=== PATIENT | female | born 1950 | race Caucasian/White ===

== ENCOUNTER 2019-02-04 14:53 | Emergency (ER) | payer BC ==
--- NOTE | 2019-02-04 15:05 | PDOC ---
Rapid Medical Evaluation Time Seen by Provider: 02/04/19 15:02 Medical Evaluation: Allergies Allergy/AdvReac Type Severity Reaction Status Date / Time No Known Allergies Allergy Verified 07/10/13 09:40 02/04/19 15:02 I have performed a brief in-person evaluation of this patient. The patient presents with a chief complaint of:slipped on ice today and reports R ankle pain. Able to bear weight w/ cane since but painful. No head injury. Denies shin, dizziness, n/v, LOC, neck, back or hip pain. No CP or dizziness prior to fall. H/o HTN, on baby asa, COPD Pertinent physical exam findings:Stable and well kevin, defer rest of exam to FT provider I have ordered the following:R ankle/foot xray The patient will proceed to the ED for further evaluation. Discharge Disposition - Diagnosis Ankle injury Qualifiers: Encounter type: initial encounter Laterality: right Qualified Code(s): S99.911A - Unspecified injury of right ankle, initial encounter - Referrals - Patient Instructions - Post Discharge Activity
[2019-02-04 15:07] VITALS: BP 131/81; PULSE 91; TEMP 98.5; BMI 41.5
--- NOTE | 2019-02-04 17:29 | PDOC ---
History of Present Illness - General Chief Complaint: Injury Stated Complaint: FALL Time Seen by Provider: 02/04/19 15:02 - History of Present Illness Initial Comments: 02/04/19 17:26 5-year-old female presents for evaluation of right ankle pain. She describes an inversion type injury while walking earlier today. She points to the lateral aspect of the right ankle as the area of her discomfort Past History - Past Medical History Allergies/Adverse Reactions: Allergies Allergy/AdvReac Type Severity Reaction Status Date / Time No Known Allergies Allergy Verified 02/04/19 15:03 CVA: No COPD: Yes CHF: No DVT: No HTN: Yes - Immunization History Immunization Up to Date: Yes - Psycho Social/Smoking Cessation Hx Smoking History: Never smoked Information on smoking cessation initiated: No Hx Alcohol Use: No Drug/Substance Use Hx: No Review of Systems - Review of Systems Musculoskeletal: Yes: Joint Pain *Physical Exam - Vital Signs Last Vital Signs Temp Pulse Resp BP Pulse Ox 98.5 F 91 H 18 131/81 99 02/04/19 15:03 02/04/19 15:03 02/04/19 15:03 02/04/19 15:03 02/04/19 15:03 - Physical Exam 02/04/19 17:26 Right ankle skin color and temperature normal range of motion is slightly limited. There is no tenderness about the proximal fibula or along its distal course. No tenderness about the medial lateral malleolus base of the fifth metatarsal or navicular. Mild tenderness over the ATFL without instability no gross sensorimotor deficits neurovascular intact. ED Treatment Course - RADIOLOGY Radiology Studies Ordered: Category Date Time Status ANKLE-RIGHT [RAD] Stat Radiology 02/04/19 16:49 Taken Medical Decision Making - Medical Decision Making 02/04/19 17:27 X-rays of the right ankle show osteopenia no gross fracture moderate degenerative changes. Right ankle sprain, weight-bear as tolerated with crutches and Aircast follow-up with Ortho Discharge - Discharge Information Problems reviewed: Yes Clinical Impression/Diagnosis: Ankle injury Qualifiers: Encounter type: initial encounter Laterality: right Qualified Code(s): S99.911A - Unspecified injury of right ankle, initial encounter Condition: Stable Disposition: HOME - Admission No - Follow up/Referral Referrals: Lalito Hull MD [Primary Care Provider] - Farooq,Tripp A, DO [Staff Physician] - - Patient Discharge Instructions Additional Instructions: You may weight-bear as tolerated with use of crutches in the Aircast Tylenol as directed for pain. Return to the emergency room for worsening symptoms. And without fail please follow-up with orthopedic surgery in 1 to 2 days for further evaluation and treatment options. - Post Discharge Activity
== END 2019-02-04 17:55 | disposition home or self-care (01) ==
LOC: JERFT 14:53
PROC: 2W3QX1Z Immobilization of Right Lower Leg using Splint (ICD-10-PCS; principal; 2019-02-04)
DX: S93.491A Sprain of other ligament of right ankle, initial encounter (principal); W00.2XXA Other fall from one level to another due to ice and snow, initial encounter; Y93.89 Activity, other specified; Y92.414 Local residential or business street as the place of occurrence of the external cause; Y99.8 Other external cause status; I10 Essential (primary) hypertension; J44.9 Chronic obstructive pulmonary disease, unspecified
CPT/HCPCS: 73610-TC-RT-FY; 99282-25

== ENCOUNTER 2019-10-25 09:48 | Emergency (ER) | payer BC ==
--- NOTE | 2019-10-25 10:26 | TELE ---
HPI Do you have fever,cough or shortness of breath?: No - General Reason For Visit: COVID TEST Time Seen by Provider: 10/25/19 10:23 History Source: Patient Exam Limitations: No Limitations - History of Present Illness 10/25/19 10:23 HPI: 68-year-old woman past medical history of hypertension who presents for telehealth visit requesting COVID testing. Patient states she was recently in the state [facility] and upon return was found that her needs a bone marrow biopsy for reevaluation of his lymphoma. Patient was informed by her 's oncologist that it would be unsafe to be near him after the biopsy until she has COVID testing which is negative. Patient denies any symptoms at present. Allergies: Denies CONSTITUTIONAL: Absent: fever, chills, diaphoresis, generalized weakness, malaise, loss of appetite HEENT: Absent: rhinorrhea, nasal congestion, throat pain, throat swelling, difficulty swallowing, mouth swelling, ear pain, eye pain, visual changes CARDIOVASCULAR: Absent: chest pain, loss of consciousness, palpitations, irregular heart rate, peripheral edema RESPIRATORY: Absent: cough, shortness of breath, dyspnea with exertion, orthopnea, wheezing, stridor, hemoptysis GASTROINTESTINAL: Absent: abdominal pain, abdominal distension, nausea, vomiting, diarrhea SKIN: Absent: rash, itching, pallor NEUROLOGIC: Absent: headache, focal weakness or paresthesias, dizziness, unsteady gait, seizure, mental status changes, bladder or bowel incontinence PSYCHIATRIC: Absent: anxiety, depression, suicidal or homicidal ideation, hallucinations. GENERAL: Well developed, well nourished. Awake and alert. No acute distress. HEENT: Normocephalic, atraumatic. PERRLA, EOMI. NECK: Supple. Full ROM. PULMONARY: No evidence of respiratory distress. EXTREMITIES: No cyanosis. SKIN: Warm and dry. Normal capillary refill. No rashes. No jaundice. NEUROLOGICAL: Alert, awake, appropriate. PSYCHIATRIC: Cooperative. Good eye contact. Appropriate mood and affect. Past History - Medical History Allergies/Adverse Reactions: Allergies Allergy/AdvReac Type Severity Reaction Status Date / Time No Known Allergies Allergy Verified 02/04/19 15:03 CVA: No COPD: Yes CHF: No DVT: No HTN: Yes - Immunization History Immunization Up to Date: Yes - Psycho-Social/Smoking History Smoking History: Never smoked - Medical Decision Making 10/25/19 10:24 A/P: 68-year-old woman with telehealth visit for COVID testing Patient is asymptomatic COVID testing COVID antibody testing Discharge Discharge Diagnosis at time of Disposition: Counseled about COVID-19 virus infection - Referrals Follow-up Referral(s): Lalito Hull MD [Primary Care Provider] - - Patient Instructions Additional Discharge Instructions: You were tested for COVID today. Please isolate yourself until your test results come back. Guidance has been provided in your discharge papers You should receive a call within 24 to 48 hours from our department with your results. Thank you for using our telehealth service today! - Discharge Disposition: HOME Condition at time of Disposition: Stable
== END 2019-10-25 10:26 | disposition home or self-care (01) ==
LOC: JVIRT 09:48
DX: Z11.59 Encounter for screening for other viral diseases (principal)
CPT/HCPCS: Q3014-GT; U0003

== ENCOUNTER 2021-09-26 04:14 | Day surgery (SDC) | payer OTHER ==
[2021-09-22 11:24] VITALS: BMI 39.6
[2021-09-26] MEDS ORDERED: ceFAZolin SODIUM 1 GM VIAL ONE (07:11)
[2021-09-26] MEDS ORDERED: METHYLENE BLUE 50 MG/10 ML AMPUL ONE (07:22)
[2021-09-26] MEDS ORDERED: BUPIVACAINE HCL/PF 0.5% (5MG/ML) 10 ML VIAL ONE (07:22)
[2021-09-26] MEDS ORDERED: INDOCYANINE GREEN 25 MG/10 ML VIAL IVPUSH ONE (07:22)
[2021-09-26] MEDS ORDERED: ISOSULFAN BLUE 50 MG/5 ML VIAL SQ ONE (07:23)
[2021-09-26] MEDS ORDERED: LIDOCAINE 1%/EPI 1:100000 (20 ML MULTI DOSE VIAL) ONE (07:23)
[2021-09-26] MEDS ORDERED: ACETAMINOPHEN 1000 MG/100 ML BAG IVPB ONE (08:00)
[2021-09-26] MEDS ORDERED: CEFAZOLIN 2 GM in DEXTROSE 5%-WATER - 100 ML IVPB ONE (08:00)
[2021-09-26] MEDS ORDERED: TRANEXAMIC ACID 1000 MG/10 ML VIAL IVPUSH ONE (08:00)
[2021-09-26] MEDS ORDERED: GABAPENTIN 300 MG CAPSULE PO ONE (08:00)
[2021-09-26] MEDS ORDERED: ONDANSETRON 4 MG/2 ML VIAL IVPUSH PRN (08:49)
[2021-09-26] MEDS ORDERED: PROMETHAZINE HCL 25 MG/1 ML VIAL IVPUSH PRN (08:49)
[2021-09-26] MEDS ORDERED: ROCURONIUM BROMIDE 50 MG/5 ML SYRINGE ONE ×2 (09:09→10:38)
[2021-09-26] MEDS ORDERED: PROPOFOL 40 ML ONE (09:10)
[2021-09-26] MEDS ORDERED: MIDAZOLAM HCL 2 MG/2 ML SINGLE DOSE VIAL ONE (09:10)
[2021-09-26] MEDS ORDERED: GLYCOPYRROLATE 0.2 MG/1 ML VIAL ONE ×2 (09:15→11:13)
[2021-09-26] MEDS ORDERED: LIDOCAINE HCL/PF 2% SDV 5ML VIAL ONE (09:15)
[2021-09-26] MEDS ORDERED: ceFAZolin SODIUM 1 GM VIAL IVPB ONE (09:42)
[2021-09-26] MEDS ORDERED: DEXAMETHASONE SOD PHOSPHATE 4 MG/1 ML VIAL ONE (09:47)
[2021-09-26] MEDS ORDERED: NEOSTIGMINE METHYLSULFATE 0.5 MG/ML - 10 ML MDV ONE (11:13)
[2021-09-26] MEDS ORDERED: ONDANSETRON 4 MG/2 ML VIAL IVPB PRN (11:33)
[2021-09-26] MEDS ORDERED: KETOROLAC TROMETHAMINE 30 MG/1 ML VIAL ONE (12:55)
[2021-09-26] MEDS ORDERED: KETOROLAC TROMETHAMINE 15 MG/ML VIAL IVPUSH ONE (12:58)
[2021-09-26] MEDS: ACETAMINOPHEN 1000 MG/100 ML BAG IVPB SCH (14:08)
[2021-09-26 15:22] LABS: BILIRUBIN,TOTAL 0.5 mg/dL (0.2-1); CALCIUM 9.5 mg/dL (8.5-10.1)
[2021-09-26] MEDS ORDERED: KCL 10 MEQ IVPB 10 MEQ/100 ML INFUS.BAG IVPB SCH (16:45)
[2021-09-26] MEDS ORDERED: ceFAZolin 2 GRAM PREMIX BAG IVPB SCH (18:00)
[2021-09-26] MEDS: LACTATED RINGERS SOLUTION 1,000 ML IV SCH (18:22)
[2021-09-26] MEDS: CEFAZOLIN SODIUM 2 GM in DEXTROSE 5%-WATER 100 ML IVPB SCH (18:23)
[2021-09-26 18:52] VITALS: RESP 18
[2021-09-26] MEDS: KETOROLAC TROMETHAMINE 15 MG/ML VIAL IVPUSH SCH ×2 (19:00→19:11)
[2021-09-26] MEDS: KCL 10 MEQ IVPB 10 MEQ/100 ML INFUS.BAG IVPB SCH (23:20)
[2021-09-27] MEDS: KCL 10 MEQ IVPB 10 MEQ/100 ML INFUS.BAG IVPB SCH
[2021-09-27] MEDS: ACETAMINOPHEN 1000 MG/100 ML BAG IVPB SCH ×3 (01:12→08:25)
[2021-09-27] MEDS: KETOROLAC TROMETHAMINE 15 MG/ML VIAL IVPUSH SCH ×3 (01:16→13:57)
[2021-09-27] MEDS: CEFAZOLIN SODIUM 2 GM in DEXTROSE 5%-WATER 100 ML IVPB SCH ×2 (01:36→10:42)
[2021-09-27] MEDS ORDERED: ENOXAPARIN NA (PORCINE) 40 MG/0.4 ML DISP.SYRIN SQ SCH (10:00)
[2021-09-27] MEDS: LACTATED RINGERS SOLUTION 1,000 ML IV SCH (10:35)
[2021-09-27] MEDS ORDERED: HYDROCHLOROTHIAZIDE 25 MG TABLET (FP) PO SCH (12:15)
[2021-09-27] MEDS ORDERED: amLODIPine BESYLATE 10 MG TABLET (FP) PO SCH (12:15)
[2021-09-27 12:20] LABS: HEMATOCRIT 36.4 % (32.4-45.2); HEMOGLOBIN 12.1 GM/dL (10.7-15.3); MCH 30.4 pg (25.7-33.7); MCHC 33.3 g/dl (32.0-36.0); MEAN CELL VOLUME 91.2 fl (80-96); MEAN PLT VOLUME 10.1 fl (7.5-11.1); PLATELET COUNT 160 10^3/uL (134-434); RBC 3.99 M/mm3 (3.60-5.2); RDW 13.9 % (11.6-15.6); WHITE BLOOD COUNT 9.6 K/mm3 (4.0-10.0)
[2021-09-27 12:41] LABS: CALCIUM 8.9 mg/dL (8.5-10.1)
[2021-09-27 12:43] LABS: BLOOD UREA NITROGEN 17.5 mg/dL (7-18)
[2021-09-27 12:46] LABS: CREATININE 0.9 mg/dL (0.55-1.3)
[2021-09-27] MEDS ORDERED: FENOFIBRIC ACID 135 MG CAP PO SCH (13:30)
[2021-09-27 14:41] VITALS: BP 119/48; TEMP 98.4
[2021-09-27 16:33] VITALS: PULSE 72
[2021-09-27] MEDS ORDERED: metoPROLOL SUCCINATE 25 MG TAB.SR.24H (FP) PO SCH (22:00)
[2021-09-28] MEDS ORDERED: LEVOTHYROXINE NA 25 MCG TABLET (FP) PO SCH (07:00)
== END 2021-09-27 18:17 | disposition home or self-care (01) ==
LOC: JASUSAT 04:14 → J6S 17:25 → JASUSAT 09-27 18:17
PROVIDERS: ATTEND Obstetrics & Gynecology Gynecologic Oncology
PROC: 0UT9FZZ Resection of Uterus, Via Natural or Artificial Opening With Percutaneous Endoscopic Assistance (ICD-10-PCS; 2021-09-26)
PROC: 07BC4ZZ Excision of Pelvis Lymphatic, Percutaneous Endoscopic Approach (ICD-10-PCS; 2021-09-26)
PROC: 0UT2FZZ Resection of Bilateral Ovaries, Via Natural or Artificial Opening With Percutaneous Endoscopic Assistance (ICD-10-PCS; principal; 2021-09-26 09:00)
PROC: 0UT7FZZ Resection of Bilateral Fallopian Tubes, Via Natural or Artificial Opening With Percutaneous Endoscopic Assistance (ICD-10-PCS; 2021-09-26 09:00)
PROC: 8E0W8CZ Robotic Assisted Procedure of Trunk Region, Via Natural or Artificial Opening Endoscopic (ICD-10-PCS; 2021-09-26 09:00)
DX: C54.1 Malignant neoplasm of endometrium (principal)
CPT/HCPCS: 38572; 58552; C9756; S2900; 36415; 80048; 80053; 85027; 86850; 86900; 86901; 88108; 88305-TC; 88307-TC; 88309-TC; 94760; 94761; Q9968